=== PATIENT | male | born 1995 ===

== ENCOUNTER 2017-07-15 14:42 | Emergency (ER) | payer OTHER ==
[2017-07-15 14:54] VITALS: BP 124/79; PULSE 65; RESP 16; TEMP 98.4; O2SAT 97
--- NOTE | 2017-07-15 15:16 | EDPHY ---
H & P Time Seen by Provider: 07/15/17 14:49 HPI/ROS: CHIEF COMPLAINT: Hit head snowboarding HISTORY OF PRESENT ILLNESS: 22-year-old male generally healthy, no anticoagulant use or coagulopathic disorder visiting from [place] was the helmeted snowboarder at [place] today at 11:30 a.m. when he caught a heel edge, impacted the occiput of his head. No loss of consciousness. [place] dazed after the incident. He is complaining of nonprogressive headache. He denies: Vomiting, nausea, amnesia, fall from height, otorrhea, midline C-spine pain, peripheral paresthesia, weakness, numbness, chest pain or trauma, dyspnea , back pain or trauma. REVIEW OF SYSTEMS: A ten point review of systems was performed and is negative with the exception of the items mentioned in the HPI PAST MEDICAL/SURGICAL HISTORY: no anticoagulant use, no relevant medical/ surgical history SOCIAL HISTORY: denies alcohol use at time of incident PHYSICAL EXAM 1) GENERAL: Well-developed, well-nourished, alert and oriented. Appears to be in no acute distress. Answering questions appropriately. GCS 15 2) HEAD: Normocephalic, atraumatic 3) HEENT: Pupils equal, round, reactive to light bilaterally. Negative Horners. Nasopharynx, oropharynx, clear. No deformity or angulation of nose. No septal hematoma. No rhinorrhea. No oral trauma. Ears bilaterally with normal tympanic membranes. No hemotympanum. No fluid or blood in the external auditory canal. No raccoon eyes. No Hinds sign. Teeth are normally aligned with no gross malocclusion, TMJ bilaterally nontender, facial bones nontender including the zygomatic arch, maxilla mandible. 4) NECK: No cervical collar is on. Posterior cervical spine is nontender, no stepoff, no effusion. Full range of motion which does not elicit any midline cervical spine pain, no posterior midline tenderness, no step-off. 5) LUNGS: Clear to auscultation bilaterally, no wheezes, no rhonchi, no retractions. No obvious signs of trauma. No chest wall pain. No flaring, no grunting. Moving symmetrically. No crepitus. 6) HEART: [Regular rate and rhythm, 7) ABDOMEN: No guarding, no rebound, no focal tenderness, no peritoneal signs, no signs of trauma, no ecchymosis 8) MUSCULOSKELETAL: Moving all extremities, no focal areas of tenderness, no obvious trauma. 9) BACK: Patient logrolled while holding inline traction.No midline vertebral tenderness, no fluctuance, no step-off, no obvious trauma, no visual or palpable abnormality. 10) SKIN: No laceration. No abrasion 11) NEURO: Awake, alert, and oriented to person, place and time. Answers questions appropriately. There were no obvious focal neurologic abnormalities. No cerebellar dysfunction. Cranial nerves 2 through to 12 intact. Normal steady gait. Upper and lower extremities bilaterally with strength 5 / 5, reflexes 2+. DIFFERENTIAL DIAGNOSIS: Not necessarily in any particular order, my differential diagnosis includes, but is not limited to, concussion, skull fracture, intraparenchymal contusion, subarachnoid, subdural and epidural hematoma. The patient understands that this diagnosis is provisional and can never be 100% accurate. Smoking Status: Never smoked Constitutional: Initial Vital Signs Temperature (C) 36.9 C 07/15/17 14:45 Heart Rate 65 07/15/17 14:45 Respiratory Rate 16 07/15/17 14:45 Blood Pressure 124/79 H 07/15/17 14:45 O2 Sat (%) 97 07/15/17 14:45 O2 Delivery Mode Room Air Allergies/Adverse Reactions: Penicillins Allergy (Verified 07/15/17 14:44) Home Medications: Medication Instructions Recorded NK [No Known Home Meds] 07/15/17 MDM/Departure - MDM ED Course/Re-evaluation: The patient has a nonfocal exam, negative [place] head CT imaging decision- making tool. I do not think that the benefits of CT imaging outweigh the risks in this patient whom I have a low pretest index of suspicion for intracranial hemorrhage and/or skull fracture. Nonetheless I did offer CT imaging and he is in agreement he does not feel is indicated. I did provide him with head injury precautions, red flag signs and symptoms, 2nd impact precautions. He feels comfortable being discharged. He will be in [place] for 3 more days. If at any point he develops new or worsening symptoms, if you developed nausea or vomiting, altered mentation, needs to return to the closest emergency department immediately. He feels comfortable with this plan. Care of patient under supervision of secondary supervising physician Dr Nelson Salas. - Depart Disposition: Home, Routine, Self-Care Clinical Impression: Head injury Qualifiers: Encounter type: initial encounter Qualified Code(s): S09.90XA - Unspecified injury of head, initial encounter Snowboarding accident Qualifiers: Encounter type: initial encounter Qualified Code(s): V00.318A - Other snowboard accident, initial encounter Condition: Good Instructions: Head Injury (ED) Additional Instructions: ALTHOUGH THERE IS NO EVIDENCE OF SERIOUS HEAD INJURY AT THIS TIME, DELAYED SIGNS CAN APPEAR 24 TO 48 HOURS AFTER INJURY. PLEASE RETURN TO THE EMERGENCY DEPARTMENT (ED) IMMEDIATELY IF YOU HAVE INCREASED HEADACHE, PERSISTENT HEADACHE , VOMITING, WEAKNESS, CONFUSION OR VISUAL PROBLEMS. WE RECOMMEND THAT YOU DO NOT RESUME CONTACT SPORTS OR ACTIVITIES THAT TAKE COORDINATION OR BALANCE SUCH SKIING OR RIDING A BICYCLE UNTIL CLEARED TO DO SO BY YOUR DOCTOR OR BY A NEUROLOGIST. Referrals: Desire Cook MD [Medical Doctor] - 5-7 days, call for appt.
== END 2017-07-15 15:34 | disposition home or self-care (01) ==
DX: S09.90XA Unspecified injury of head, initial encounter (principal); V00.311A Fall from snowboard, initial encounter; Y99.8 Other external cause status; Y93.23 Activity, snow (alpine) (downhill) skiing, snowboarding, sledding, tobogganing and snow tubing